=== PATIENT | female | born 2005 | race Two or more races ===

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

== ENCOUNTER 2024-10-23 14:10 | Emergency (ER) | payer OTHER, MEDICAID ==
[~2024-10-23] VITALS: Ht 162.6 cm; Wt 83.1 kg
[~2024-10-23 14:10] MED LIST: HYDR25CA PO
[2024-10-23 14:41] VITALS: BP 149/87; PULSE 108; RESP 18; TEMP 97.2; O2SAT 100
[2024-10-23] MEDS: EPINEPHrine HCL 1 MG/1 ML AMP SC ONE (15:08)
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
[2024-10-23] MEDS ORDERED: METH4PAK PO (15:10)
[2024-10-23] MEDS ORDERED: HYDR50TA69 PO (15:10)
== END 2024-10-23 15:30 | disposition home or self-care (01) ==
LOC: ER 14:10
DX: T78.1XXA Other adverse food reactions, not elsewhere classified, initial encounter (principal); J45.909 Unspecified asthma, uncomplicated; F12.90 Cannabis use, unspecified, uncomplicated; Z88.8 Allergy status to other drugs, medicaments and biological substances; X58.XXXA Exposure to other specified factors, initial encounter
CPT/HCPCS: 96372; 99283; J0171

== ENCOUNTER 2025-07-19 21:29 | Emergency (ER) | payer MEDICAID, OTHER ==
[~2025-07-19] VITALS: Ht 165.1 cm; Wt 85.9 kg
[~2025-07-19 21:29] MED LIST changes: +HYDR50TA69 PO; +METH4PAK PO
--- NOTE | 2025-07-19 22:19 | ED.PDOC ---
History of Present Illness HPI Comments 19 y/o obese F, with no pertinent history, presents with c/c left, 5th digit pain. Patient endorses on pain onset after having part of her real nail partially torn after overlaying fake nail got caught, earlier, today. Denies any further acute symptoms. Chief Complaint: Upper Extremity Time Seen by MD: 22:00 Primary Care Provider: UNKNOWN Reviewed Notes: Nurses Notes, Medications, Allergies Allergies: Coded Allergies: Acetaminophen (Verified Allergy, Unknown, 07/19/25) Dextromethorphan (Verified Allergy, Unknown, 07/19/25) Doxylamine (Verified Allergy, Unknown, 07/19/25) Ethanol (Verified Allergy, Unknown, 07/19/25) Guaifenesin (Verified Allergy, Unknown, 07/19/25) Pseudoephedrine (Verified Allergy, Unknown, 07/19/25) Uncoded Allergies: SHRIMP (Allergy, Unknown, 10/23/24) Home Meds Active Scripts Hydroxyzine Hcl (Hydroxyzine Hcl) 50 Mg Tab, 1 TAB PO BID, #30 TAB Prov:KAROLINA GAFFNEY 10/23/24 Methylprednisolone (Medrol Dosepak) 4 Mg Eros, 4 MG PO UD, #21 TAB UAD Prov:KAROLINA GAFFNEY 10/23/24 Hydroxyzine Pamoate (Vistaril) 25 Mg Cap, 1 CAP PO BID, #10 CAP 1 Refill as needed for anxiety Prov:PALAK JOHNSON NP 06/25/23 Information Source: Patient Mode of Arrival: Ambulatory Severity: Moderate Timing: Hours Duration: Since onset Prehospital treatment: None Past Medical History PAST MEDICAL HISTORY: Anxiety, Asthma Surgical History: Denies all surgeries 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 Family History Family History: Reviewed,noncontributory to illness Social History Smoker: Non-Smoker Alcohol: Denies ETOH Use Drugs: Marijuana Lives In: Home All Other Systems: Reviewed and Negative (as per HPI) Physical Exam General Appearance: No Apparent Distress, Obese HEENT: Normal ENT Inspection, Pharynx Normal, TMs Normal Neck: Full Range of Motion, Non-Tender, Normal, Normal Inspection Respiratory: Chest Non-Tender, Lungs Clear, No Accessory Muscle Use, No Respiratory Distress, Normal Breath Sounds Cardiovascular: No Edema, No JVD, No Murmur, No Gallop, Normal Peripheral Pulses, Regular Rate/Rhythm Breast Exam: Deferred Gastrointestinal: No Organomegaly, Non Tender, No Pulsatile Mass, Normal Bowel Sounds, Soft Genitalia: Deferred Pelvic: Deferred Rectal: Deferred Extremities: No calf tenderness, Normal capillary refill, Normal range of motion, Non-tender, No pedal edema, Other (distal portion of nail of 5th digit is detached, proximal portion of nail is intact intact, with good alignment ) Musculoskeletal : Apperance: Normal Neurologic: Alert, 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 Was a procedure done?: No Differential Dx Considerations may include: hang nail X-Ray, Labs, Meds, VS Vital Signs Date Time Temp Pulse Resp B/P (MAP) Pulse Ox O2 Delivery O2 Flow Rate FiO2 07/19/25 21:32 97.8 91 19 101/77 98 97.8 Time of 1ST Reevaluation: 22:30 Reevaluation 1ST: Unchanged Patient Education/Counseling: Diagnosis, Treatment, Need For Follow Up Family Education/Counseling: No Family Present Comments Patient has a partial nail avulsion of the left index fingernail. With most of the proximal portion intact. This nail was cleaned up and splinted and tacked to the underlying matrix patient is stable for discharge SEPSIS Sepsis Screen Date sepsis recognized/suspect: Jul 19, 2025 Time Sepsis recognized/suspect: 2139 Recent Procedure: No On Antibiotic Therapy: No Respiratory Rate >20: No Heart Rate >90: No Temp<36 C (96.8 F) or >38.3 C: No SBP <90 or MAP <65 mmHG: No New Acute Mental Status Change: No Is the patient on CPAP, BIPAP,: No Physician Orders Clean Wound (07/19/25 ) Vital Signs Date Time Temp Pulse Resp B/P (MAP) Pulse Ox O2 Delivery O2 Flow Rate FiO2 07/19/25 21:32 97.8 91 19 101/77 98 97.8 Departure 1 Departure Time of Disposition: 00:48 Impression: Primary Impression: Nail avulsion, finger Qualified Codes: S61.309A - Unspecified open wound of unspecified finger with damage to nail, initial encounter Disposition: HOME / SELF CARE / HOMELESS Condition: Good Discharged With: Self Critical Care Note Critical Care Time?: No Stability Stability form required: No Heart Score Heart Score: Heart Score Response (Comments) Value History N/A 0 EKG N/A 0 Age N/A 0 Risk Factors N/A 0 Troponin N/A 0 Total 0 I personally scribed for RADHA QUINONES MD ([email or web address]) on 07/19/25 at 22:19. Electronically submitted by Jair Silvestre ([email or web address]). RADHA QUINONES MD Jul 19, 2025 22:19
[2025-07-20 00:49] VITALS: BP 112/65; PULSE 64; RESP 18; TEMP 99.4; O2SAT 96
== END 2025-07-20 01:00 | disposition home or self-care (01) ==
LOC: ER 21:36
DX: S61.301A Unspecified open wound of left index finger with damage to nail, initial encounter (principal); X58.XXXA Exposure to other specified factors, initial encounter; Y93.89 Activity, other specified; Y92.89 Other specified places as the place of occurrence of the external cause; Y99.8 Other external cause status
CPT/HCPCS: 29130

== ENCOUNTER 2025-07-23 02:25 | Emergency (ER) | payer MEDICAID, OTHER ==
[~2025-07-23] VITALS: Ht 165.1 cm; Wt 85.0 kg
[2025-07-23 02:37] VITALS: BP 128/104; PULSE 72; RESP 18; TEMP 98.8; O2SAT 100
[2025-07-23] MEDS ORDERED: DIPH25CA66 PO (02:40)
[2025-07-23] MEDS ORDERED: PRED20TA2 PO (02:40)
--- NOTE | 2025-07-23 02:40 | ED.PDOC ---
History of Present Illness(SKN HPI Comments 19-year-old female presents to ER with complaints of rash x 30 minutes. Patient reports she started developing itchy red hives to bilateral arms and bilateral legs 30 minutes prior to arrival to ER. Denies any pain and denies use of medications for current symptoms. Patient presents to ER ambulatory on arrival, with steady gait, in no distress with mild urticaria noted to bilateral legs and bilateral arms. Denies fever, body aches, chills, shortness of breath, chest pain, nausea/vomiting, use of new soaps/detergents/lotions, diet changes or any further symptoms/complaints Chief Complaint: Allergic Reaction Time Seen by MD: 02:28 Primary Care Provider: UNKNOWN History of Present Illness: Nurses Notes, Medications, Allergies Allergies: Coded Allergies: Acetaminophen (Verified Allergy, Unknown, 07/19/25) Dextromethorphan (Verified Allergy, Unknown, 07/19/25) Doxylamine (Verified Allergy, Unknown, 07/19/25) Ethanol (Verified Allergy, Unknown, 07/19/25) Guaifenesin (Verified Allergy, Unknown, 07/19/25) Pseudoephedrine (Verified Allergy, Unknown, 07/19/25) Uncoded Allergies: SHRIMP (Allergy, Unknown, 10/23/24) Home Meds Active Scripts Prednisone (Prednisone) 20 Mg Tab, 20 MG PO BID for 5 Days, #10 TAB 0 Refills Prov:IONA CABELLO 07/23/25 Diphenhydramine Hcl (Benadryl Allergy) 25 Mg Cap, 2 CAP PO Q6HPRN, #30 CAP 0 Refills Prov:IONA CABELLO 07/23/25 Hydroxyzine Hcl (Hydroxyzine Hcl) 50 Mg Tab, 1 TAB PO BID, #30 TAB Prov:KAROLINA GAFFNEY 10/23/24 Methylprednisolone (Medrol Dosepak) 4 Mg Eros, 4 MG PO UD, #21 TAB UAD Prov:KAROLINA GAFFNEY 10/23/24 Hydroxyzine Pamoate (Vistaril) 25 Mg Cap, 1 CAP PO BID, #10 CAP 1 Refill as needed for anxiety Prov:PALAK JOHNSON NP 06/25/23 Information Source: Patient Mode of Arrival: Ambulatory Past Medical History PAST MEDICAL HISTORY: Anxiety, Asthma Surgical History: Denies all surgeries 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 Family History Family History: Unknown Social History Smoker: Non-Smoker Alcohol: Denies ETOH Use Drugs: Marijuana Lives In: Home Constitutional: denies: chills, diaphoresis, fatigue, fever, malaise, sweats, weakness, others EENTM: denies: blurred vision, double vision, ear bleeding, ear discharge, ear drainage, ear pain, ear ringing, eye pain, eye redness, hearing loss, mouth pa in, mouth swelling, nasal discharge, nose bleeding, nose congestion, nose pain, photophobia, tearing, throat pain, throat swelling, voice changes, others Respiratory: denies: cough, hemoptysis, orthopnea, SOB at rest, shortness of breath, SOB with excertion, stridor, wheezing, others Cardiovascular: denies: chest pain, dizzy spells, diaphoresis, Dyspnea on exertion, edema, irregular heart beat, left arm pain, lightheadedness, palpitations, PND, syncope, others Gastrointestinal: denies: abdomen distended, abdominal pain, blood streaked bowels, constipated, diarrhea, dysphagia, difficulty swallowing, hematemesis, melena, nausea, poor appetite, poor fluid intake, rectal bleeding, rectal pain, vomiting, others Genitourinary: denies: abnormal vagina bleeding, burning, dyspareunia, dysuria, flank pain, frequency, hematuria, incontinence, pain, , vagina discharge, urgency, others Neurological: denies: dizziness, fainting, headache, left sided numbness, left sided weakness, numbness, paresthesia, pre-existing deficit, right sided numbness, right sided weakness, seizure, speech problems, tingling, tremors, weakness, others Musculoskeletal: denies: back pain, gout, joint pain, joint swelling, muscle pain, muscle stiffness, neck pain, others Integumetry: reports: others (As stated in HPI) Allergic/Immunocompromised: reports: others (As stated in HPI) Hematologic/Lymphatic: denies: anemia, blood clots, easy bleeding, easy bruising, swollen glands, others Endocrine: denies: excessive hunger, excessive sweating, excessive thirst, excessive urination, flushing, intolerance to cold, intolerance to heat, unexplained weight gain, unexplained weight loss, others Psychiatric: denies: anxiety, bipolar disorder, depression, hopeless, panic disorder, schizophrenia, sleepless, suicidal, others Physical Exam General Appearance: No Apparent Distress, Obese HEENT: Normal ENT Inspection, PERRL/EOMI, Pharynx Normal, TMs Normal Neck: Full Range of Motion, Non-Tender, Normal Respiratory: Chest Non-Tender, Lungs Clear, No Accessory Muscle Use, No Respiratory Distress, Normal Breath Sounds Cardiovascular: No Murmur, No Gallop, Regular Rate/Rhythm Breast Exam: Deferred Gastrointestinal: NOT DONE Genitalia: Deferred Pelvic: Deferred Rectal: Deferred Extremities: Normal capillary refill, Normal range of motion Neurologic: Alert, No Motor Deficits, Normal Affect, Normal Mood, No Sensory Deficits Cerebellar Function: Normal Reflexes: Normal Skin: Dry, Warm, Other (Mild urticaria noted to bilateral legs and bilateral arms. No angioedema/further skin changes noted) Peripheral Pulses: 2+ Radial (R), 2+ Radial (L), 2+ Brachial (R), 2+ Brachial (L) Lymphatic: No Adenopathy Was a procedure done? Was a procedure done?: No Sedation Sedation?: No Differential Diagnosis (INTG) Differential Diagnosis: Contact Dermatitis Differential Diagnosis: Cellulitis, Other (Respiratory distress, angioedema) X-Ray, Labs, Meds, VS Vital Signs Date Time Temp Pulse Resp B/P (MAP) Pulse Ox O2 Delivery O2 Flow Rate FiO2 07/23/25 02:37 Room Air* 0 21 07/23/25 02:37 98.8 72 18 128/104 (112) 100 98.8 07/23/25 02:25 98.8 72 18 128/104 100 98.8 Solu-Medrol 125 mg IM ordered Benadryl 25 mg IM ordered Patient had improvement in symptoms and in no distress prior to discharge Advised to drink plenty of fluids Cannabis cessation discussed and advised Advised to follow up with PCP and die cutter diamond in 1-2 days Patient verbalized understanding and agreeable with current plan of care Advised to return to ER immediately if symptoms worsen Time of 1ST Reevaluation: 02:28 Reevaluation 1ST: N/A Patient Education/Counseling: Diagnosis, Treatment, Prognosis, Need For Follow Up Family Education/Counseling: No Family Present SEPSIS Sepsis Screen Date sepsis recognized/suspect: Jul 23, 2025 Time Sepsis recognized/suspect: 224 Recent Procedure: No On Antibiotic Therapy: No Respiratory Rate >20: No Heart Rate >90: No Temp<36 C (96.8 F) or >38.3 C: No SBP <90 or MAP <65 mmHG: No New Acute Mental Status Change: No Is the patient on CPAP, BIPAP,: No Physician Orders Methylprednisolone Sod Succ (Solu Medrol (07/23/25 02:45) Diphenhdramine Injection (Benadryl Injec (07/23/25 02:45) Vital Signs Date Time Temp Pulse Resp B/P (MAP) Pulse Ox O2 Delivery O2 Flow Rate FiO2 07/23/25 02:37 Room Air* 0 21 07/23/25 02:37 98.8 72 18 128/104 (112) 100 98.8 07/23/25 02:25 98.8 72 18 128/104 100 98.8 Departure 1 Departure Time of Disposition: 02:45 Impression: Primary Impression: Allergic reaction Qualified Codes: T78.40XA - Allergy, unspecified, initial encounter Disposition: HOME / SELF CARE / HOMELESS Condition: Stable e-Prescriptions Prednisone (Prednisone) 20 Mg Tab 20 MG PO BID for 5 Days, #10 TAB 0 Refills Prov: IONA CABELLO 07/23/25 Diphenhydramine Hcl (Benadryl Allergy) 25 Mg Cap 2 CAP PO Q6HPRN, #30 CAP 0 Refills Prov: IONA CABELLO 07/23/25 Discharged With: Significant Other Critical Care Note Critical Care Time?: No Stability Stability form required: No Heart Score Heart Score: Heart Score Response (Comments) Value History N/A 0 EKG N/A 0 Age N/A 0 Risk Factors N/A 0 Troponin N/A 0 Total 0 IONA CABELLO Jul 23, 2025 02:40
[2025-07-23] MEDS: methylPREDNISolone SOD SUCC 125 MG/2 ML VL IM ONE (02:46)
[2025-07-23] MEDS: diphenhdrAMINE HCL 50 MG/1 ML VL IM ONE (02:47)
== END 2025-07-23 02:52 | disposition home or self-care (01) ==
LOC: ER 02:33
DX: T78.40XA Allergy, unspecified, initial encounter (principal); F12.90 Cannabis use, unspecified, uncomplicated; J45.909 Unspecified asthma, uncomplicated; F41.9 Anxiety disorder, unspecified; Z79.52 Long term (current) use of systemic steroids; Z79.899 Other long term (current) drug therapy; X58.XXXA Exposure to other specified factors, initial encounter
CPT/HCPCS: 96372; 99284; J1200; J2919